=== PATIENT | male | born 1940 | race Caucasian/White ===

== ENCOUNTER 2023-01-04 08:00 | Outpatient (RCR) | payer MEDICARE, SELFPAY | END 2023-01-04 08:05 | disposition home or self-care (01) | LOC: PT 08:00 | PROVIDERS: Visit Provider Family Medicine | DX: M79.661 Pain in right lower leg (principal); S91.001A Unspecified open wound, right ankle, initial encounter | CPT/HCPCS: 97140; 97163; 97597 ==